=== PATIENT | male | born 2000 | race Caucasian/White ===

== ENCOUNTER 2019-07-28 15:06 | Emergency (ER) | payer BC ==
[~2019-07-28] VITALS: Ht 185.4 cm; Wt 181.4 kg
[~2019-07-28 15:06] MED LIST: MOTRIN800 MG PO; NKHM
[2019-07-28] MEDS ORDERED: SEPTDS PO (15:25)
[2019-07-28] MEDS ORDERED: ANTIBIOTIC28.4 GM T (15:25)
== END 2019-07-28 16:59 | disposition home or self-care (01) ==
LOC: ED 15:06
DX: S91.311A Laceration without foreign body, right foot, initial encounter (principal); Z23 Encounter for immunization; W45.8XXA Other foreign body or object entering through skin, initial encounter; Y93.89 Activity, other specified; Y92.89 Other specified places as the place of occurrence of the external cause; Y99.8 Other external cause status